=== PATIENT | female | born 1990 | race Caucasian/White ===

== ENCOUNTER 2018-05-05 11:29 | Outpatient (CLI) | payer OTHER ==
--- NOTE | 2018-05-05 13:42 | RAD ---
RIGHT ANKLE 3 VIEWS: Date: 05/05/18 HISTORY: Right ankle pain. FINDINGS/IMPRESSION: The ankle mortise is maintained. No fracture, dislocation, or bony destruction is identified. POS: YUE
== END 2018-05-05 11:30 | disposition home or self-care (01) ==
LOC: RAD-FRANK 11:29
PROVIDERS: ATTEND Nurse Practitioner Family
DX: M25.571 Pain in right ankle and joints of right foot (principal)

== ENCOUNTER 2019-04-25 09:29 | Emergency (ER) | payer SELFPAY | END 2019-04-25 09:53 | disposition home or self-care (01) | LOC: ERS 09:29 | DX: M26.621 Arthralgia of right temporomandibular joint (principal); F17.210 Nicotine dependence, cigarettes, uncomplicated | CPT/HCPCS: 99282 ==